=== PATIENT | female | born 2000 | race Caucasian/White ===

== ENCOUNTER 2025-02-09 07:53 | Day surgery (SDC) | payer OTHER ==
[2025-02-08 14:21] VITALS: BP 134/92
[~2025-02-09] VITALS: Ht 162.6 cm; Wt 85.0 kg
[~2025-02-09 07:53] MED LIST: ALL DAY ALLERGY10 MG PO; ALLERGY NASAL17 ML; CIPROFLOXACIN 0.3% 5 ML HOME.PACK ONE; CLARITIN10 M1 PO; CLINDAMYCIN PHOSPHATE/D5W 900 MG/50 ML PIGGYBACK IV SCH; CYCLOBENZAPRINE10 MG PO; DEXAMETHASONE SOD PHOS 4 MG/ML VIAL ONE; FAMOTIDINE 20 MG/ 2 ML VIAL ONE; FLONASE ALLERG9.9 ML; IBLOOD GLUCOSE TEST STRIP 1 EA TEST VI PRN; KETOROLAC TROMETHAMINE 30 MG/ML VIAL ONE; LACTATED RINGER'S 1,000 ML IV ONE; LACTATED RINGER'S 1,000 ML IV SCH; LEXAPRO10 MG PO; LIDOCAINE 1% W/ EPI 1:100,000 20 ML MDV ONE; LIDOCAINE HCL 1% 5 ML SDV INJ ONE; METOCLOPRAMIDE HCL 10 MG/2 ML SDV ONE; MIDAZOLAM HCL 2 MG/2 ML VIAL ONE; SEVOFLURANE 250 ML BTL ONE; SINGULAIR10 MG PO; fentaNYL citrate 100 MCG/2 ML VIAL ONE; ondansetron HCL 4 MG/2 ML VIAL ONE; propofoL 200 MG/20 ML VIAL ONE
[2025-02-09 08:12] VITALS: BP 110/64
[2025-02-09] MEDS ORDERED: OXYMETAZOLINE HCL 30 ML BTL NAS SCH (08:30)
[2025-02-09] MEDS ORDERED: droPERidol 5 MG/2 ML VIAL IV PRN (09:00)
[2025-02-09] MEDS ORDERED: PROCHLORPERAZINE EDISYLATE 10 MG/2 ML VIAL IV PRN (09:00)
[2025-02-09] MEDS ORDERED: fentaNYL citrate 50 MCG/ML SDV IV PRN (09:00)
[2025-02-09] MEDS ORDERED: METOCLOPRAMIDE HCL 10 MG/2 ML SDV IV PRN (09:00)
[2025-02-09] MEDS ORDERED: IBLOOD GLUCOSE TEST STRIP 1 EA TEST VI PRN (09:00)
[2025-02-09] MEDS ORDERED: ondansetron HCL 4 MG/2 ML VIAL IV PRN (09:00)
[2025-02-09] MEDS ORDERED: NALOXONE HCL 0.4 MG SYR IV PRN (09:00)
[2025-02-09] MEDS ORDERED: MORPHINE SULFATE 10 MG/ML VIAL IV PRN (09:00)
[2025-02-09] MEDS ORDERED: dexmedeTOMIDine HCl 200 MCG/2 ML VIAL ONE (09:26)
[2025-02-09] MEDS ORDERED: CIPROFLOXACIN 0.3% 5 ML HOME.PACK OTIC ONE (09:45)
--- NOTE | 2025-02-09 10:26 | NUR ---
02/09/25 Kilo6 Reena Don PATIENT OPENS HER EYES AND FOLLOWS INSTRUCTIONS TO OPEN HER MOUTH FOR ORAL AIRWAY TO BE REMOVED. PATIENT DENIES PAIN AND NAUSEA.
--- NOTE | 2025-02-09 10:34 | NUR ---
PT ARRIVES TO DS FROM PACU VIA STRETCHER. PT IS DROWSY, BUT RESPONSIVE TO VERBAL STIMULI AND ASKING APPROPRIATE QUESTIONS AT THIS TIME. PT ON RA W/O2 >90% VIA PULSE OX. RESPIRATIONS EVEN AND UNLABORED, NO SIGNS OF DISTRESS. PACKING IN PLACE. COTTON BALLS REMAIN IN PLACE IN BILAT EARS. PT REPORTS NO PAIN OR NAUSEA AT THIS TIME. APPLESAUCE, ICE WATER, AND CRACKERS PROVIDED AT THIS TIME. CALL LIGHT WITHIN REACH, REPORT RECEIVED FROM JARED AGGARWAL W/JULIA IN ROOM. PT REPORTS NO FURTHER NEEDS OR QUESTIONS AT THIS TIME.
[2025-02-09 10:37] VITALS: BP 104/66
--- NOTE | 2025-02-09 11:01 | OR ---
[facility] [place] [facility] [address] [place], [place] [address] Signed DATE OF OPERATION: 02/09/2025 SURGEON: Enmanuel Bartlett MD PREOPERATIVE DIAGNOSIS: Chronic eustachian tube dysfunction with inferior turbinate hypertrophy. POSTOPERATIVE DIAGNOSIS: Chronic eustachian tube dysfunction with inferior turbinate hypertrophy. PROCEDURE: Bilateral myringotomy and ventilation tube insertion with Rhodes tubes and cautery bilateral inferior turbinate submucosal. ANESTHESIA: General LMA, Jeet AUGUSTIN. PREOPERATIVE HISTORY: Rupinder is a 24-year-old young lady with a long history of ear problems, plugging, discomfort, ear tubes as a child. Recent difficulty with hearing on the phone, etc, fluid sensation, difficulty clearing her ears. Also, she uses nasal CPAP for obstructive sleep apnea with a lot of difficulty with nasal obstruction, congestion, unresponsive to appropriate medications. She is taken to the operating room for the above-mentioned procedures. OPERATIVE PROCEDURE AND FINDINGS: After informed consent, the patient was taken to the operating room, placed in the supine position where general LMA anesthesia was induced. The patient and procedure were verified. The patient received preoperative intranasal oxymetazoline. The patient and procedure were verified. The patient was repositioned. The left ear was examined with the operating microscope. Anterior inferior radial myringotomy was made. A very scant mucoid effusion suctioned from the middle ear space. A Rhodes tube placed in myringotomy site. Cipro ophthalmic drops applied to the ear canal, cotton ball to the meatus. Same procedure same findings right ear. The patient was repositioned. The nasal exam with the headlight and speculum showed a straight septum, nonobstructive turbinates were decongested after the oxymetazoline. The left side was approached 1st. A long handle needle point cautery multiple transmucosal passes of the inferior turbinate starting anteriorly extending all the way back posteriorly on the medial inferior surface of the inferior turbinate. Excellent Electronically Signed By: ENMANUEL BARTLETT MD 02/09/25 1101 PATIENT NAME: RUPINDER CHARLTON OPERATIVE REPORT DATE OF : [birth year] REPORT #: [id number] PHYSICIAN: ENMANUEL BARTLETT MD PCP: DINH DE LEON NP REPORT IS CONFIDENTIAL AND NOT TO BE RELEASED WITHOUT AUTHORIZATION [facility] [address] [facility] [place], [place] [address] Signed shrinkage of the turbinate was obtained in this manner, minimal bleeding. Same procedure on the right inferior turbinate. Packing was then placed, trimmed Merocel equal amount one piece each side coated with Neosporin, tied anteriorly over a pad. The pharynx was suctioned clear of blood and secretions. The patient was awakened, extubated, transported to recovery room in good condition. No complications. BLOOD LOSS: Minimal. SPECIMEN: No. DRAINS: No drains. Enmanuel Bartlett MD GC/RICKL /[id number] Copies: ~ Electronically Signed By: ENMANUEL BARTLETT MD 02/09/25 1101 PATIENT NAME: RUPINDER CHARLTON OPERATIVE REPORT DATE OF : 00 REPORT #: [id number] PHYSICIAN: ENMANUEL BARTLETT MD PCP: DINH DE LEON NP REPORT IS CONFIDENTIAL AND NOT TO BE RELEASED WITHOUT AUTHORIZATION
[2025-02-09] MEDS ORDERED: HYDROCODONE/ACETA 5/325 TAB PO PRN (11:15)
[2025-02-09 11:28] VITALS: BP 103/65
--- NOTE | 2025-02-09 11:30 | NUR ---
IN PT ROOM FOR VS AND ASSESSMENT. VS TAKEN. NO ACUTE CHANGES FROM PREVIOUS SURGICAL ASSESSMENT. PT REPORTS PAIN 2/10 AT THIS TIME AND TOLERABLE. PT TOLERATED ICE WATER AND APPLESAUCE/CRACKERS WITHOUT DIFFICULTY SWALLOWING OR ONSET OF NAUSEA. CALL LIGHT WITHIN REACH. PT FIANCE AT PHARMACY FILLING PRESCRIPTION. PT REPORTS NO FURTHER NEEDS OR QUESTIONS AT THIS TIME.
--- NOTE | 2025-02-09 12:15 | NUR ---
PT FIANCE ARRIVES W/FILLED PRESCRIPTION. PT HAS SCANT AMOUNT OF RED DRAINAGE AT THIS TIME, DRIP PAD DEMONSTRATION PERFORMED AND DRIP PAD IN PLACE. PT STATES VERBAL UNDERSTANDING AT THIS TIME AND NO FURTHER QUESTIONS OR NEEDS. PT SITS AT BEDSIDE AND STATES NO ONSET OF NAUSEA/DIZZINESS. PT NOW GETTING DRESSED. CALL LIGHT WITHIN REACH, FIANCE AT BEDSIDE TO ASSIST.
[2025-02-09 12:25] VITALS: BP 98/68
--- NOTE | 2025-02-09 12:25 | NUR ---
IV DC'ED, WNL, GAUZE/COBAN IN PLACE. VS TAKEN. DC EDUCATION PROVIDED, PT STATES VERBAL UNDERSTANDING AND NO FURTHER QUESTIONS OR NEEDS AT THIS TIME. PT OFF OF UNIT VIA WC TO PASSENGER SIDE OF VEHICLE. ALL BELONGINGS IN PT POSSESSION AT THIS TIME. PT REPORTS NO FURTHER QUESTIONS OR NEEDS.
[2025-02-09] MEDS ORDERED: SEVOFLURANE 250 ML BTL INH ONE (16:40)
== END 2025-02-09 12:30 | disposition home or self-care (01) ==
LOC: DS 07:53 → OPS 07:53 → DS 09:30 → OPS 12:30
PROVIDERS: ATTEND Otolaryngology
DX: H69.93 Unspecified Eustachian tube disorder, bilateral (principal); J34.3 Hypertrophy of nasal turbinates; J30.9 Allergic rhinitis, unspecified; Z88.1 Allergy status to other antibiotic agents; Z79.899 Other long term (current) drug therapy
CPT/HCPCS: 00160; J1100; J1885; J2250; J2405; J2704; J2765; J3010; J3490; J7121